=== PATIENT | female | born 1960 | race African-American/Black ===

== ENCOUNTER 2017-08-17 10:13 | Emergency (ER) | payer MEDICAID, OTHER ==
[~2017-08-17] VITALS: Ht 152.4 cm; Wt 68.0 kg
[2017-08-17] MEDS ORDERED: MORPHINE SULFATE 4 MG/ML CPJ (NOT FOR IM USE) IV STA (10:45)
[2017-08-17] MEDS ORDERED: CLONIDINE 0.2MG TABLET PO ONE (10:45)
[2017-08-17] MEDS ORDERED: ONDANSETRON HCL 4MG/2ML VIAL IV STA (10:45)
[2017-08-17 11:16] LABS: BASOPHILS % 0.8 % (0.0-2.0); EOSINOPHILS % 1.6 % (0.0-5.0); HEMATOCRIT. 35.6 % (36.0-48.0); HEMOGLOBIN. 11.4 g/dL (12.0-16.0); LYMPHOCYTES % 18.5 % (20.0-50.0); MEAN CORPUSCULAR HEMOGLOBIN 23.4 pg (28.0-32.0); MEAN CORPUSCULAR VOLUME 73.2 fL (81.0-99.0); MEAN PLATELET VOLUME 9.2 fl (7.4-10.4); MONOCYTES % 7.6 % (2.0-8.0); NEUTROPHILS % 71.5 % (40.0-76.0); PLATELET 356 x1000/uL (130-400); RED BLOOD CELL COUNT 4.86 mill/uL (4.2-5.4); RED CELL DISTRIBUTION WIDTH 14.3 % (11.6-14.6)
[2017-08-17 11:34] LABS: CARBON DIOXIDE 29 mEq/L (21-32); CHLORIDE 107 mEq/L (98-107); ETHANOL BLOOD < 10 mg/dL; TROPONIN I < 0.02 ng/mL (0.00-0.04)
[2017-08-17 14:22] VITALS: BP 123/82
== END 2017-08-17 14:50 | disposition home or self-care (01) ==
LOC: ER 10:32 → EDBEDREQTM 13:27 → EDBEDREQ 13:27 → CANBEDREQ 14:12 → ER 14:50
DX: R51 Headache (principal); H53.8 Other visual disturbances; R42 Dizziness and giddiness; I10 Essential (primary) hypertension; Z88.0 Allergy status to penicillin; Z91.14 Patient's other noncompliance with medication regimen
CPT/HCPCS: 36415; 70450; 71045; 80053; 83880; 84443; 84484; 85025; 93005; 96374; 96375; 99285; G0482; J2270; J2405; Z7610

== ENCOUNTER 2019-03-05 16:37 | Inpatient (IN) | payer MEDICAID, OTHER ==
[~2019-03-05] VITALS: Ht 157.5 cm; Wt 96.2 kg
[2019-03-05] MEDS ORDERED: LABETALOL 5MG/ML SYR 20 MG/4 ML SYRINGE IV ONE (17:00)
[2019-03-05] MEDS ORDERED: AMLODIPINE 5MG TABLET PO ONE (18:00)
[2019-03-05 18:05] LABS: BASOPHILS % 0.7 % (0.0-2.0); EOSINOPHILS % 2.5 % (0.0-5.0); HEMATOCRIT. 35.9 % (36.0-48.0); HEMOGLOBIN. 11.5 g/dL (12.0-16.0); LYMPHOCYTES % 28.6 % (20.0-50.0); MEAN CORPUSCULAR HEMOGLOBIN 23.9 pg (28.0-32.0); MEAN CORPUSCULAR VOLUME 74.8 fL (81.0-99.0); MEAN PLATELET VOLUME 10.3 fl (7.4-10.4); MONOCYTES % 8.4 % (2.0-8.0); NEUTROPHILS % 59.8 % (40.0-76.0); PLATELET 250 x1000/uL (130-400); RED CELL DISTRIBUTION WIDTH 14.5 % (11.6-14.6)
[2019-03-05 18:10] LABS: PARTIAL THROMBOPLASTIN TIME 27.2 sec (23.4-31.0); PROTHROMBIN TIME 9.9 sec (9.6-11.0)
[2019-03-05 18:14] LABS: CHLORIDE 108 mEq/L (98-107)
[2019-03-05 18:24] LABS: *AMPHETAMINES SCREEN URINE NEGATIVE (NEGATIVE)
[2019-03-05 18:25] LABS: *BARBITURATES SCREEN URINE NEGATIVE (NEGATIVE); *BENZODIAZEPINES SCREEN URINE NEGATIVE (NEGATIVE); *COCAINE SCREEN URINE NEGATIVE (NEGATIVE); METHADONE URINE SCREEN NEGATIVE (NEGATIVE); OPIATES URINE SCREEN NEGATIVE (NEGATIVE); PHENCYCLIDINE URINE SCREEN NEGATIVE (NEGATIVE)
[2019-03-05 18:26] LABS: CANNABINOID URINE SCREEN PRESUMTIVE POSITIVE (NEGATIVE)
[2019-03-05 20:00] VITALS: BP 182/85
[2019-03-05] MEDS ORDERED: GUAIFENESIN 200MG/10ML SUGAR FREE UDC PO PRN (20:00)
[2019-03-05] MEDS ORDERED: HYDROCODONE/ACETAMINOPHEN 10/325MG TABLET PO PRN (20:00)
[2019-03-05] MEDS ORDERED: NA PHOS,M-B/NA PHOS,DI-BA ENEMA 118ML PR PRN (20:00)
[2019-03-05] MEDS ORDERED: DOCUSATE SODIUM 100MG CAPSULE PO PRN (20:00)
[2019-03-05] MEDS ORDERED: LORAZEPAM 2MG/ML CPJ IV PRN (20:00)
[2019-03-05] MEDS ORDERED: HYDRALAZINE 20MG/ML VIAL IV PRN (20:00)
[2019-03-05] MEDS ORDERED: ONDANSETRON HCL 4MG/2ML INJ IV PRN (20:00)
[2019-03-05] MEDS ORDERED: ACETAMINOPHEN 325MG TABLET PO PRN (20:00)
[2019-03-05] MEDS ORDERED: MAGNESIUM/ALUMINUM HYDROXIDE/SIMETHICONE 30ML UDC PO PRN (20:00)
[2019-03-05] MEDS ORDERED: IPRATROPIUM/ALBUTEROL 0.5-3(2.5)MG/3ML NEB INH PRN (20:00)
[2019-03-05] MEDS ORDERED: DIPHENHYDRAMINE 50MG/ML VIAL IV PRN (20:00)
[2019-03-05 22:56] LABS: CREATINE KINASE 75 IU/L (26-192); CREATINE KINASE MB FRACTION < 1.0 ng/mL (0.5-3.6)
[2019-03-05] MEDS ORDERED: ENOXAPARIN 40MG/0.4ML SYR SUBCUT SCH (23:00)
[2019-03-05] MEDS ORDERED: AMLO5TAB88 PO (23:02)
[2019-03-05 23:13] VITALS: BP 182/85
[2019-03-05] MEDS: SODIUM CHLORIDE 0.9% INJ 3ML FLUSH IVF SCH (23:41)
[2019-03-06] VITALS: BP 168/76
[2019-03-06] MEDS: HYDROMORPHONE HCL/PF 2MG/ML CPJ IV PRN ×2 (02:00→06:45)
[2019-03-06 04:00] VITALS: BP 147/68
[2019-03-06] MEDS: SODIUM CHLORIDE 0.9% INJ 3ML FLUSH IVF SCH ×3 (05:14→22:27)
[2019-03-06] MEDS: CLONIDINE 0.1MG TABLET PO PRN (06:44)
[2019-03-06 07:25] LABS: BASOPHILS % 0.8 % (0.0-2.0); EOSINOPHILS % 0.6 % (0.0-5.0); HEMATOCRIT. 34.5 % (36.0-48.0); HEMOGLOBIN. 11.3 g/dL (12.0-16.0); LYMPHOCYTES % 12.4 % (20.0-50.0); MEAN CORPUSCULAR HEMOGLOBIN 24.1 pg (28.0-32.0); MEAN CORPUSCULAR VOLUME 73.8 fL (81.0-99.0); MEAN PLATELET VOLUME 10.5 fl (7.4-10.4); MONOCYTES % 4.5 % (2.0-8.0); NEUTROPHILS % 81.7 % (40.0-76.0); PLATELET 234 x1000/uL (130-400); RED BLOOD CELL COUNT 4.68 mill/uL (4.2-5.4); RED CELL DISTRIBUTION WIDTH 14.4 % (11.6-14.6)
[2019-03-06 07:30] LABS: CHLORIDE 110 mEq/L (98-107)
[2019-03-06 07:39] LABS: LDL CHOLESTEROL 88 mg/dL (5-100); T4 FREE 1.06 ng/dL (0.76-1.46)
[2019-03-06 07:41] LABS: CREATINE KINASE 78 IU/L (26-192); CREATINE KINASE MB FRACTION < 1.0 ng/mL (0.5-3.6); HDL CHOLESTEROL 57 mg/dL (40-59)
[2019-03-06 08:00] VITALS: BP 106/57
[2019-03-06] MEDS: ASPIRIN 81MG EC TABLET PO SCH (08:51)
[2019-03-06] MEDS: AMLODIPINE 5MG TABLET PO SCH (09:00)
[2019-03-06 12:00] VITALS: BP 100/62
[2019-03-06 12:13] LABS: T4 FREE 1.09 ng/dL (0.76-1.46)
[2019-03-06 15:49] VITALS: BP 128/43
[2019-03-06 16:18] LABS: CREATINE KINASE 70 IU/L (26-192)
[2019-03-06 16:19] LABS: CREATINE KINASE MB FRACTION < 1.0 ng/mL (0.5-3.6)
[2019-03-06 20:00] VITALS: BP 132/54
[2019-03-06] MEDS: ENOXAPARIN 30MG/0.3ML SYR SUBCUT SCH (20:22)
[2019-03-07] VITALS: BP 146/64
[2019-03-07 00:52] LABS: CREATINE KINASE 76 IU/L (26-192)
[2019-03-07 00:53] LABS: CREATINE KINASE MB FRACTION < 1.0 ng/mL (0.5-3.6)
[2019-03-07 04:00] VITALS: BP 116/47
[2019-03-07] MEDS: SODIUM CHLORIDE 0.9% INJ 3ML FLUSH IVF SCH (05:43)
[2019-03-07 08:00] VITALS: BP 163/73
[2019-03-07 08:04] LABS: CREATINE KINASE 67 IU/L (26-192)
[2019-03-07 08:06] LABS: CREATINE KINASE MB FRACTION < 1.0 ng/mL (0.5-3.6)
[2019-03-07] MEDS: AMLODIPINE 5MG TABLET PO SCH (09:04)
[2019-03-07] MEDS: ENOXAPARIN 30MG/0.3ML SYR SUBCUT SCH (09:04)
[2019-03-07] MEDS: ASPIRIN 81MG EC TABLET PO SCH (09:04)
[2019-03-07] MEDS: CLONIDINE 0.1MG TABLET PO PRN (09:12)
[2019-03-07] MEDS ORDERED: AMLODIPINE 5MG TABLET PO NR (11:45)
[2019-03-07 12:00] VITALS: BP 122/59
[2019-03-07 12:47] VITALS: BP 122/59
== END 2019-03-07 13:30 | disposition home or self-care (01) | DRG 199 ==
LOC: ER 16:37 → 5WST 18:39 → ENRESERV 21:30
PROVIDERS: ADMIT Internal Medicine; ATTEND Internal Medicine
DX: I16.9 Hypertensive crisis, unspecified (principal); E87.8 Other disorders of electrolyte and fluid balance, not elsewhere classified; D64.9 Anemia, unspecified; E78.5 Hyperlipidemia, unspecified; I10 Essential (primary) hypertension; Z91.14 Patient's other noncompliance with medication regimen; Z79.899 Other long term (current) drug therapy; Z88.0 Allergy status to penicillin; Z68.38 Body mass index [BMI] 38.0-38.9, adult
CPT/HCPCS: 36415; 71045; 80061; 80305; 82550; 82553; 82962; 83036; 83880; 84439; 84443; 84484; 85379; 93005; 93306; 96374; 99285; J0360; J1170; J1650; J2405; J3490

== ENCOUNTER 2019-05-15 07:47 | Emergency (ER) | payer SELFPAY ==
[~2019-05-15] VITALS: Ht 167.6 cm; Wt 96.0 kg
[~2019-05-15 07:47] MED LIST: AMLO5TAB88 PO
[2019-05-15] MEDS ORDERED: KETOROLAC 60MG/2ML VIAL IM STA (08:30)
[2019-05-15 09:30] VITALS: BP 182/91
== END 2019-05-15 09:31 | disposition home or self-care (01) ==
LOC: ER 09:28
DX: K02.9 Dental caries, unspecified (principal); I10 Essential (primary) hypertension; Z88.0 Allergy status to penicillin; Z79.899 Other long term (current) drug therapy
CPT/HCPCS: 96372; 99283; J1885